=== PATIENT | female | born 1985 | race African-American/Black ===

== ENCOUNTER 2023-10-30 15:23 | Outpatient (CLI) | payer OTHER | END 2023-10-30 15:24 | disposition home or self-care (01) | LOC: BICULT 15:23 | PROVIDERS: ATTEND Student in an Organized Health Care Education/Training Program | DX: N28.9 Disorder of kidney and ureter, unspecified (principal); N28.1 Cyst of kidney, acquired | CPT/HCPCS: 76770 ==

== ENCOUNTER 2024-04-14 21:47 | Emergency (ER) | payer OTHER | END 2024-04-15 00:11 | disposition left against medical advice (07) | LOC: ERS 21:47 | DX: Z53.21 Procedure and treatment not carried out due to patient leaving prior to being seen by health care provider (principal) | CPT/HCPCS: 93005 ==